=== PATIENT | male | born 1995 | race Caucasian/White ===

== ENCOUNTER → 2017-05-23 | Outpatient (CLI) | payer BC ==
[~2017-05-23] MED LIST: MONT1TAB3 PO; NSNN50
--- NOTE | 2017-05-23 13:33 | DIAGNOSTIC IMAGING REPORT ---
RIGHT FINGER(S) MIN 2 VIEWS CLINICAL HISTORY: Right 5th digit FX Right trauma. Pain. COMPARISON: None. DISCUSSION: Displaced avulsion type fracture from the base of the distal phalanx. The small fracture fragment is displaced dorsally. No evidence dislocation. Remaining osseous structures are unremarkable. Mild localized soft tissue edema IMPRESSION: Small dorsally displaced fracture base distal phalanx right fifth finger Electronically signed by: Chad Newby M.D. 05/23/2017 1:31 PM Dictated Date/Time: 05/23/2017 1:30 PM
== END | disposition home or self-care (01) ==
LOC: C.RDSM 13:45
PROVIDERS: ATTEND Physician Assistant
DX: S92.353A Displaced fracture of fifth metatarsal bone, unspecified foot, initial encounter for closed fracture (principal); X58.XXXA Exposure to other specified factors, initial encounter

== ENCOUNTER 2017-09-03 13:09 | Emergency (ER) | payer BC ==
[~2017-09-03] VITALS: Ht 180.3 cm; Wt 85.5 kg
[2017-09-03 13:13] VITALS: TEMP 36.9; Ht 180.3 cm; Wt 85.5 kg
--- NOTE | 2017-09-03 13:52 | EMERGENCY ROOM VISIT NOTE ---
History First contact with patient: 13:25 Chief Complaint: EYE ASSESSMENT Stated Complaint: VISION IS OFF History of Present Illness The patient is a 22 year old male who presents to the Emergency Room with complaints of transient visual disturbance this morning. Patient states this morning he woke up and he felt sweaty, had a headache, felt tremulous and nauseous. He went to [facility] to be evaluated. When he got off the bus, he states that he felt that everything was very bright outside. He says that things "didn't seem clear", but he denies having any blurred vision or visual distortion and thinks it may have been because everything looked so bright to him. He states that once he got inside [facility], his symptoms immediately resolved. He denies any blurred vision, double vision. He has chronic floaters and these were unchanged. He denies any hearing loss, tinnitus, vertigo or difficulty with balance. He denies any difficulty with speech, comprehension or swallowing. He denies any unilateral extremity weakness or peripheral sensory changes. He denies any fevers. He reported his symptoms to [facility]. In the setting of the visual changes, he [facility] requested that he come to the emergency room to be further evaluated. Review of Systems A 10 point review of systems was negative unless stated above. Past Medical/Surgical History Medical Problems: (1) Alcoholic intoxication (2) Alcoholic intoxication (3) Ankle fracture, left (4) Anxiety (5) Asthma (6) Depression Depression/anxiety Seasonal allergies Family History No known family history Social History Smoking Status: Current Some Day Smoker Smokeless Tobacco Use: No Alcohol Use: occasionally (15 units per week) Drug Use: none Marital Status: single Housing Status: lives with roommate Occupation Status: [employer] student Current/Historical Medications Scheduled Bupropion (Wellbutrin), 100 MG PO QAM Citalopram Hydrobromide (Celexa), 20 MG PO BID Montelukast Sodium (Singulair), 10 MG PO DAILY Trazodone Hcl (Trazodone), 50 MG PO HS Triamcinolone Acetonide (Nasal (Nasacort Allergy 24Hr), 1 SPRAY NA DAILY Allergies Seasonal allergies Shellfish Physical Exam Vital Signs Date Time Temp Pulse Resp B/P (MAP) Pulse Ox O2 Delivery O2 Flow Rate FiO2 09/03/17 17:11 75 16 98/50 99 Room Air 09/03/17 15:53 70 16 99/65 98 Room Air 09/03/17 15:09 59 16 95/55 09/03/17 13:45 65 16 111/59 99 Room Air 09/03/17 13:13 36.9 89 16 138/73 97 Room Air Pain Rating (0-10): 0 Physical Exam Constitutional: Vital signs as above were reviewed. Eyes: Pupils equal, round, and reactive to light. Extraocular muscles are intact. No proptosis. No photophobia. Bilateral visual infante intact Normal visual acuity No abnormalities on inspection of the eyeball, eyelids, soft tissue around the eye ENT: Mucous membranes are moist. Oropharynx is clear. No sinus tenderness. TMs are clear bilaterally. Cardiovascular: Heart with a regular rate and rhythm. Pulses are palpable and symmetric in all 4 extremities. No pedal edema appreciated. Respiratory: Lungs clear to auscultation bilaterally. No wheezes, rales, or rhonchi appreciated. No accessory muscle use. No retractions. No increased work of breathing. GI: Abdomen soft, nontender, nondistended. Normal active bowel sounds. No abdominal hernias appreciated. No rebound. No guarding. : No CVA tenderness appreciated. Musculoskeletal: No midline cervical or vertebral tenderness. No gross deformities. No bony tenderness. No calf swelling or tenderness. Integumentary: Warm, dry, no rashes appreciated. Neurological: Patient awake, alert, and oriented x 3. Cranial nerves two through 12 grossly intact. Motor 5 out of 5 strength bilateral upper and lower extremities. No pronator drift Normal finger to nose testing Normal heel feliciano testing Lymph: No cervical lymphadenopathy appreciated. Medical Decision & Procedures Laboratory Results 09/03/17 00:00 Red Blood Count 4.15, Mean Corpuscular Volume 94.9, Mean Corpuscular Hemoglobin 30.1, Mean Corpuscular Hemoglobin Concent 31.7, Mean Platelet Volume 10.9, Neutrophils (%) (Auto) 79.5, Lymphocytes (%) (Auto) 19.6, Monocytes (%) (Auto) 0.1, Eosinophils (%) (Auto) 0.3, Basophils (%) (Auto) 0.4, Neutrophils # (Auto) 7.15, Lymphocytes # (Auto) 1.77, Monocytes # (Auto) 0.01, Eosinophils # (Auto) 0.03, Basophils # (Auto) 0.04 09/03/17 00:00 Test 09/03/17 00:00 White Blood Count 9.01 K/uL (4.8-10.8) Red Blood Count 4.15 M/uL (4.7-6.1) Hemoglobin 12.5 g/dL (14.0-18.0) Hematocrit 39.4 % (42-52) Mean Corpuscular Volume 94.9 fL (80-100) Mean Corpuscular Hemoglobin 30.1 pg (25-34) Mean Corpuscular Hemoglobin Concent 31.7 g/dl (32-36) Platelet Count 271 K/uL (130-400) Mean Platelet Volume 10.9 fL (7.4-10.4) Neutrophils (%) (Auto) 79.5 % Lymphocytes (%) (Auto) 19.6 % Monocytes (%) (Auto) 0.1 % Eosinophils (%) (Auto) 0.3 % Basophils (%) (Auto) 0.4 % Neutrophils # (Auto) 7.15 K/uL (1.4-6.5) Lymphocytes # (Auto) 1.77 K/uL (1.2-3.4) Monocytes # (Auto) 0.01 K/uL (0.11-0.59) Eosinophils # (Auto) 0.03 K/uL (0-0.5) Basophils # (Auto) 0.04 K/uL (0-0.2) RDW Standard Deviation 46.6 fL (36.4-46.3) RDW Coefficient of Variation 13.3 % (11.5-14.5) Immature Granulocyte % (Auto) 0.1 % Immature Granulocyte # (Auto) 0.01 K/uL (0.00-0.02) Anion Gap 6.0 mmol/L (3-11) Est Creatinine Clear Calc Drug Dose 124.4 ml/min Estimated GFR () 124.1 Estimated GFR (Non- 107.1 BUN/Creatinine Ratio 8.3 (10-20) Calcium Level 8.5 mg/dl (8.5-10.1) Total Bilirubin 0.2 mg/dl (0.2-1) Aspartate Amino Transf (AST/SGOT) 36 U/L (15-37) Alanine Aminotransferase (ALT/SGPT) 34 U/L (12-78) Alkaline Phosphatase 55 U/L (45-117) Total Protein 6.1 gm/dl (6.4-8.2) Albumin 2.7 gm/dl (3.4-5.0) Globulin 3.4 gm/dl (2.5-4.0) Albumin/Globulin Ratio 0.8 (0.9-2) Lyme Disease IgG Antibody NEG (NEG) Lyme Disease IgM Antibody NEG (NEG) Monoscreen NEG (NEG) Influenza Type A (RT-PCR) Neg for Influ A (NEG) Influenza Type A Antigen Neg for Influ A (NEG) Influenza Type B Antigen Neg for Influ B (NEG) Influenza Type B (RT-PCR) Neg for Influ B (NEG) Medications Administered Medications (Trade) Dose Ordered Sig/Hortencia Route Start Time Stop Time Status Last Admin Dose Admin Sodium Chloride 1,000 ml @ 999 mls/hr Q1H1M ONCE IV 09/03/17 14:00 09/03/17 15:00 DC 09/03/17 14:03 999 MLS/HR ED Course 13:30 - The patient was seen and evaluated by Dr. James Marrero MD [facility] 13:45 - Discussed case with Dr Salty Abreu, ER attending physician 13:50 - Labs ordered CBC, BMP, Lyme, rapid flu, rapid strep, Monospot Hydrate with 1 L NSS 16:30 - Reviewed labs results Negative strep, monospot, lyme screen, rapid flu Mild anemia noted; can be deferred to outpatient PCP 16:35 - Discussed results. Patient agrees to discharge and PCP follow-up. 16:50 - Discharge paperwork completed. Medical Decision The patient presents with transient visual changes that lasted 2 minutes. He has a background of one day of malaise, aches, headache, tremors and tactile fever. Differential includes TIA/CVA, medication effect, electrolyte disturbance, Lyme disease, atypical migraine, viral illness, direct light exposure the eyes. The patient's neurological examination is completely benign in the emergency room. Furthermore given the patient's age, lack of cardiovascular risk factors , I have a very low suspicion that this is related to an acute stroke or TIA. The patient's electrolytes were reviewed and appear grossly normal. His screen for infectious causes such as strep, lyme, influenza and mononucleosis were all negative. In my discussion with pharmacist the emergency room his antidepressant medications have some reported issues of unspecified visual changes. At this point however given the short duration of symptoms, and the importance of these medications and maintenance of his depression/anxiety symptoms, I do not recommend he hold any of these medications at this time to hold any of them. Rather, this is a discussion he should have with his primary care provider or psychiatrist. The patient was noted to be mildly anemic with a hemoglobin of 12.5. Is unclear whether this is baseline or not. Did note that he also has a mildly low albumin. This really could be nutritional, or secondary to acute viral illness. I recommended to him to follow-up with [facility] who can either repeat CBC to ensure it is improving or could consider a nutritional workup with labs such as iron, B12 and folate. The patient was feeling well at the time of discharge. He was given instructions on supportive care at home and red flags that should prompt return to the emergency department for further evaluation. The patient was discharged home in stable condition. Head Trauma GCS Score: 15 Blood Pressure Screening Patient's blood pressure: Normal blood pressure Impression Primary Impression: Flu-like symptoms Additional Impressions: Anemia Visual disturbance Departure Information Dispostion Home / Self-Care Condition GOOD Referrals No Doctor, Assigned (PCP) Patient Instructions My [facility] Additional Instructions You came to the emergency room for short lasting changes in your vision. Because this happened when you stepped outside and improved completely once you went indoors, this is likely very benign and very unlikely to be a stroke. Because you have been feeling unwell today, we did check some labs on you. You do not have flu, mono, Lyme or strep throat. The labs did show that you have a very mild anemia with a hemoglobin of 12.5. This is very mild, would recommend that your primary care provider [facility] either repeat a CBC, or they can check some labs that evaluate nutrition like iron, B12 and folate. Hemoglobin may be only slightly low also because of a mild viral illness and may just improve on its own. You can be safely discharged back home. Please follow-up with your primary care provider [facility] within 1 week. Based on findings above , they may decide to repeat labs on you. In the meantime, you can take Tylenol and/or Motrin as needed for fever or pain or discomfort. If your symptoms fail to improve, acutely worsen, please seek medical attention immediately by either calling your primary care provider or going to your nearest emergency department. Otherwise, please see your primary care provider within 1 week to ensure that your symptoms continue to improve. It was a pleasure to be involved in your care and we wish you all the best. Problem Qualifiers
[2017-09-03] MEDS ORDERED: SODIUM CHLORIDE 0.9% 1000ML 1,000 ML IV ONE (14:00)
[2017-09-03 14:13] LABS: BASO % 0.4 %; BASO ABS # 0.04 K/uL (0-0.2); COMPLETE YES; EOS % 0.3 %; HEMATOCRIT 39.4 % (42-52); IG% 0.1 %; LYMPH % 19.6 %; LYMPH ABS # 1.77 K/uL (1.2-3.4); MEAN CELL VOLUME 94.9 fL (80-100); MEAN CORPUSCULAR HEMOGLOBIN 30.1 pg (25-34); MEAN CORPUSCULAR HGB CONC 31.7 g/dl (32-36); MEAN PLATELET VOLUME 10.9 fL (7.4-10.4); MONO % 0.1 %; NEUT % 79.5 %; PLATELET COUNT 271 K/uL (130-400); RED BLOOD COUNT 4.15 M/uL (4.7-6.1); WHITE BLOOD COUNT 9.01 K/uL (4.8-10.8)
[2017-09-03 14:34] LABS: BUN/CREATININE RATIO 8.3 (10-20); CALCIUM 8.5 mg/dl (8.5-10.1); POTASSIUM 4.1 mmol/L (3.5-5.1)
[2017-09-03 14:37] LABS: ALB/GLOB RATIO 0.8 (0.9-2)
[2017-09-03] MEDS ORDERED: BUPR-83 PO (14:41)
[2017-09-03] MEDS ORDERED: CITA20TA9 PO (14:41)
[2017-09-03] MEDS ORDERED: TRAZ50TA35 PO (14:41)
[2017-09-03] MEDS ORDERED: TRIA1SPR4 (14:41)
[2017-09-03 15:11] LABS: LYME DISEASE AB IGG NEG (NEG); LYME DISEASE AB IGM NEG (NEG)
[2017-09-03 16:07] LABS: INFLUENZA A PCR Neg for Influ A (NEG); INFLUENZA B PCR Neg for Influ B (NEG)
[2017-09-03 17:11] VITALS: BP 98/50; PULSE 75; O2SAT 99
--- NOTE | 2017-09-03 19:57 | EMERGENCY ROOM VISIT NOTE ---
History Report prepared by Camille: Jordan Marie Under the Supervision of: Dr. Salty Abreu M.D. First contact with patient: 13:25 Chief Complaint: EYE ASSESSMENT Stated Complaint: VISION IS OFF History of Present Illness The patient is a 22 year old male who presents to the Emergency Room with complaints of an episode of visual changes occurring just prior to arrival. He was walking to [facility] to be evaluated for malaise, cold sweats, nausea, trembling, subjective fever, body aches, sore throat, and headache when his episode occurred. His other symptoms began this morning. The patient states that his headache was generalized, and not abnormal for him. He states that his episode of visual changes involved colors appearing abnormally bright, and "things appeared unclear" but not blurry. The patient denies seeing double, or blurred vision. He notes that he has some floaters in his visual field, but that he always has these. He does not wear glasses. His symptoms occurred while outside , and immediately resolved upon going inside the building. He does state it was very jes outside. The patient has no history of similar symptoms. He has not had his flu shot his year. He denies any known tick bites. The patient has a history of depression, anxiety and asthma. He denies any vomiting. Source of History: patient Onset: just prior to arrival Symptom Intensity: two minutes long Quality: other (visual changes) Timing: other (episode) Associated Symptoms: + fevers (subjective), + sorethroat, + nausea, No vomiting Note: Additional symptoms: malaise, cold sweats, trembling, and body aches. Review of Systems See HPI for pertinent positives & negatives. A total of 10 systems reviewed and were otherwise negative. Past Medical & Surgical Medical Problems: (1) Alcoholic intoxication (2) Alcoholic intoxication (3) Ankle fracture, left (4) Anxiety (5) Asthma (6) Depression Family History No pertinent family history stated. Social History Smoking Status: Current Some Day Smoker Alcohol Use: occasionally Occupation Status: [employer] student Current/Historical Medications Scheduled Bupropion (Wellbutrin), 100 MG PO QAM Citalopram Hydrobromide (Celexa), 20 MG PO BID Montelukast Sodium (Singulair), 10 MG PO DAILY Trazodone Hcl (Trazodone), 50 MG PO HS Triamcinolone Acetonide (Nasal (Nasacort Allergy 24Hr), 1 SPRAY NA DAILY Allergies Coded Allergies: Shellfish (Verified Allergy, Unknown, GI SYMPTOMS, 09/03/17) Physical Exam Vital Signs Date Time Temp Pulse Resp B/P (MAP) Pulse Ox O2 Delivery O2 Flow Rate FiO2 09/03/17 17:11 75 16 98/50 99 Room Air 09/03/17 15:53 70 16 99/65 98 Room Air 09/03/17 15:09 59 16 95/55 09/03/17 13:45 65 16 111/59 99 Room Air 09/03/17 13:13 36.9 89 16 138/73 97 Room Air Physical Exam Constitutional: Vital signs reviewed. Eyes: Pupils are equal round reactive to light. Conjunctiva are noninjected. ENT: Erythematous without exudate. Mucous membranes are moist. Neck supple without meningeal signs. Respiratory: Clear to auscultation bilaterally. Breath sounds are equal bilaterally. Cardiovascular: Regular rate and rhythm. No rubs or gallops. GI: Soft, nondistended and nontender. Bowel sounds are present. Musculoskeletal: No peripheral edema. No lower extremity tenderness. Integumentary: No cyanosis. Neurological: The patient is awake and alert. Cranial nerves II-XII are intact. Motor is 5 out of 5 all extremities. Sensation is intact to light touch all extremities. Normal speech. No pronator drift. No limb ataxia. Normal visual infante by confrontation. Psychiatric: Normal affect. Medical Decision & Procedures Laboratory Results 09/03/17 00:00 Red Blood Count 4.15, Mean Corpuscular Volume 94.9, Mean Corpuscular Hemoglobin 30.1, Mean Corpuscular Hemoglobin Concent 31.7, Mean Platelet Volume 10.9, Neutrophils (%) (Auto) 79.5, Lymphocytes (%) (Auto) 19.6, Monocytes (%) (Auto) 0.1, Eosinophils (%) (Auto) 0.3, Basophils (%) (Auto) 0.4, Neutrophils # (Auto) 7.15, Lymphocytes # (Auto) 1.77, Monocytes # (Auto) 0.01, Eosinophils # (Auto) 0.03, Basophils # (Auto) 0.04 09/03/17 00:00 Test 09/03/17 00:00 White Blood Count 9.01 K/uL (4.8-10.8) Red Blood Count 4.15 M/uL (4.7-6.1) Hemoglobin 12.5 g/dL (14.0-18.0) Hematocrit 39.4 % (42-52) Mean Corpuscular Volume 94.9 fL (80-100) Mean Corpuscular Hemoglobin 30.1 pg (25-34) Mean Corpuscular Hemoglobin Concent 31.7 g/dl (32-36) Platelet Count 271 K/uL (130-400) Mean Platelet Volume 10.9 fL (7.4-10.4) Neutrophils (%) (Auto) 79.5 % Lymphocytes (%) (Auto) 19.6 % Monocytes (%) (Auto) 0.1 % Eosinophils (%) (Auto) 0.3 % Basophils (%) (Auto) 0.4 % Neutrophils # (Auto) 7.15 K/uL (1.4-6.5) Lymphocytes # (Auto) 1.77 K/uL (1.2-3.4) Monocytes # (Auto) 0.01 K/uL (0.11-0.59) Eosinophils # (Auto) 0.03 K/uL (0-0.5) Basophils # (Auto) 0.04 K/uL (0-0.2) RDW Standard Deviation 46.6 fL (36.4-46.3) RDW Coefficient of Variation 13.3 % (11.5-14.5) Immature Granulocyte % (Auto) 0.1 % Immature Granulocyte # (Auto) 0.01 K/uL (0.00-0.02) Anion Gap 6.0 mmol/L (3-11) Est Creatinine Clear Calc Drug Dose 124.4 ml/min Estimated GFR () 124.1 Estimated GFR (Non- 107.1 BUN/Creatinine Ratio 8.3 (10-20) Calcium Level 8.5 mg/dl (8.5-10.1) Total Bilirubin 0.2 mg/dl (0.2-1) Aspartate Amino Transf (AST/SGOT) 36 U/L (15-37) Alanine Aminotransferase (ALT/SGPT) 34 U/L (12-78) Alkaline Phosphatase 55 U/L (45-117) Total Protein 6.1 gm/dl (6.4-8.2) Albumin 2.7 gm/dl (3.4-5.0) Globulin 3.4 gm/dl (2.5-4.0) Albumin/Globulin Ratio 0.8 (0.9-2) Lyme Disease IgG Antibody NEG (NEG) Lyme Disease IgM Antibody NEG (NEG) Monoscreen NEG (NEG) Influenza Type A (RT-PCR) Neg for Influ A (NEG) Influenza Type A Antigen Neg for Influ A (NEG) Influenza Type B Antigen Neg for Influ B (NEG) Influenza Type B (RT-PCR) Neg for Influ B (NEG) Laboratory results as reviewed by me. Medications Administered Medications (Trade) Dose Ordered Sig/Hortencia Route Start Time Stop Time Status Last Admin Dose Admin Sodium Chloride 1,000 ml @ 999 mls/hr Q1H1M ONCE IV 09/03/17 14:00 09/03/17 15:00 DC 09/03/17 14:03 999 MLS/HR ED Course 1332: The patient was evaluated in room B9. A complete history and physical exam was performed. 1400: Ordered Sodium Chloride 1000 ml @ 999 mls/hr IV. 1650: Upon reevaluation, the patient appeared to have improvement of his symptoms. I discussed tonight's findings with him. He verbalized agreement of the treatment plan. The patient was discharged home. Medical Decision This is a 22-year-old male who presents with visual complaints and flulike symptoms. Differential diagnosis includes infectious mononucleosis, strep pharyngitis, viral syndrome, influenza, metabolic derangement. I did perform a limited focused review of portions of the patient's old chart on the electronic medical record. The patient has had no recent pertinent visits to this hospital. I did evaluate the patient as noted above. The patient has flulike symptoms. He also had an episode of transient visual symptoms which he describes as vivid colors. It went away as soon as he went inside a dark building. I am unclear what caused the symptoms. He has a normal neurologic exam. He denies any visual complaints at this time. IV access was established. I did order and review the patient's blood work as noted in the electronic medical record. His white blood cell count is not elevated. He is slightly anemic. He had a negative rapid flu test. Test results were discussed with the patient. He will follow closely with [facility]. He was discharged in good condition. Resident Physician Supervision Note: I did evaluate and examine this patient myself. I did guide management for the patient. I agree with the resident's (Dr. Marrero) assessment as discussed. Please see the resident's dictation for further details. Medication Reconcilliation Current Medication List: was personally reviewed by me Blood Pressure Screening Patient's blood pressure: Normal blood pressure Blood pressure disposition: Did not require urgent referral Impression Primary Impression: Flu-like symptoms Additional Impressions: Anemia Visual disturbance Scribe Attestation The scribe's documentation has been prepared under my direct and personally reviewed by me in its entirety. I confirm that the note above accurately reflects all work, treatment, procedures, and medical decision making performed by me. Departure Information Dispostion Home / Self-Care Referrals No Doctor, Assigned (PCP) Forms HOME CARE DOCUMENTATION FORM, IMPORTANT VISIT INFORMATION, WORK / SCHOOL INSTRUCTIONS Patient Instructions My [facility] Additional Instructions You came to the emergency room for short lasting changes in your vision. Because this happened when you stepped outside and improved completely once you went indoors, this is likely very benign and very unlikely to be a stroke. Because you have been feeling unwell today, we did check some labs on you. You do not have flu, mono, Lyme or strep throat. The labs did show that you have a very mild anemia with a hemoglobin of 12.5. This is very mild, would recommend that your primary care provider [facility] either repeat a CBC, or they can check some labs that evaluate nutrition like iron, B12 and folate. Hemoglobin may be only slightly low also because of a mild viral illness and may just improve on its own. You can be safely discharged back home. Please follow-up with your primary care provider [facility] within 1 week. Based on findings above , they may decide to repeat labs on you. In the meantime, you can take Tylenol and/or Motrin as needed for fever or pain or discomfort. If your symptoms fail to improve, acutely worsen, please seek medical attention immediately by either calling your primary care provider or going to your nearest emergency department. Otherwise, please see your primary care provider within 1 week to ensure that your symptoms continue to improve. It was a pleasure to be involved in your care and we wish you all the best. Problem Qualifiers Additional Impressions: Anemia Anemia type: unspecified type Qualified Codes: D64.9 - Anemia, unspecified
--- NOTE | 2017-09-05 13:11 | Pharmacy Progress Note ---
ED Pharmacist Culture FollowUp Date of Service: Sep 05, 2017. Called patient regarding throat culture with Group C Strep. Phone rang > 1 minute with no answer and no voicemail to leave message. Will continue to try to reach patient.
== END 2017-09-03 17:13 | disposition home or self-care (01) ==
LOC: C.EDB 13:11
DX: H53.9 Unspecified visual disturbance (principal); D64.9 Anemia, unspecified; F41.9 Anxiety disorder, unspecified; J45.909 Unspecified asthma, uncomplicated; F32.9 Major depressive disorder, single episode, unspecified; F17.210 Nicotine dependence, cigarettes, uncomplicated; Z79.899 Other long term (current) drug therapy